=== PATIENT | male | born 1965 | race Native Hawaiian/Other Pacific Islander ===

== ENCOUNTER → 2019-06-13 | Outpatient (CLI) | payer BC ==
--- NOTE | 2019-06-13 16:26 | RADIOLOGY REPORT (SQ) ---
EXAM DESCRIPTION: HAND RIGHT 2 VIEWS COMPLETED DATE/TIME: 06/13/2019 3:02 pm REASON FOR STUDY: PAIN IN RT HAND M79.641 PAIN IN RIGHT HAND COMPARISON: None. EXAM PARAMETERS: NUMBER OF VIEWS: Three views. TECHNIQUE: AP, lateral and oblique radiographic images acquired of the right hand. LIMITATIONS: None. FINDINGS: MINERALIZATION: Normal. BONES: No acute fracture or dislocation. Mild arthrosis of the 2nd and 3rd metacarpophalangeal joint s as well as the radiocarpal articulation with small subcortical cysts noted. JOINTS: No effusion. SOFT TISSUES: Mild dorsal soft tissue swelling. No radiopaque foreign body. OTHER: No other significant finding. IMPRESSION: No acute fracture or dislocation. Mild arthrosis of the 2nd and 3rd metacarpophalangeal joints as well as the radiocarpal articulation with small subcortical cysts noted.Mild dorsal soft t issue swelling. No radiopaque foreign body. TECHNICAL DOCUMENTATION: JOB ID: [id number] [place]-[id number] 2010 [employer]- All Rights Reserved Reading location - IP/workstation name: [email or web address]
== END ==
LOC: OD 14:09
PROVIDERS: ATTEND Internal Medicine
DX: M79.641 Pain in right hand (principal)

== ENCOUNTER → 2020-03-12 | Outpatient (CLI) | payer BC ==
--- NOTE | 2020-03-12 12:12 | RADIOLOGY REPORT (SQ) ---
EXAM DESCRIPTION: CT CHEST WITH IMAGES COMPLETED DATE/TIME: 03/12/2020 11:40 am REASON FOR STUDY: J61 PNEUMOCONIOSIS DUE TO ASBESTOS AND OTHER MINERAL FIBERS J61 PNEUMOCONIOSIS DU E TO ASBESTOS AND OTHER MINERAL FIBERS COMPARISON: None. TECHNIQUE: CT scan of the chest performed using helical scanning technique with dynamic intravenous contrast injection. Images reviewed with lung, soft tissue and bone windows. Reconstructed coronal and sagittal MPR and MIP images reviewed. All images stored on PACS. All CT scanners at this facility use dose modulation, iterative reconstruction, and/or weight based d osing when appropriate to reduce radiation dose to as low as reasonably achievable (ALARA). [facility]: Dose Right [facility]: CareDose [facility]: Dose Right [facility]: Teradose 4D [facility]: Business Engine CONTRAST TYPE AND DOSE: Contrast/concentration: Isovue 350.00 mg/ml; Total Contrast Delivered: 80.0 ml; Total Saline Delivered: 55.0 ml RENAL FUNCTION: Creatinine 0.6 milligrams/deciliter. RADIATION DOSE: CT Rad equipment meets quality standard of care and radiation dose reduction techniq ues were employed. CTDIvol: 8.4 mGy. DLP: 314 mGy-cm. LIMITATIONS: None. FINDINGS: LUNGS AND PLEURA: The trachea main bronchi are patent. There is no bronchiectasis or mucu s plugging. There is a moderately-sized pleural effusion on the left ; the effusion appears loculate d with mild smooth septal thickening. There is no consolidation, ground-glass opacification, interlo bular septal thickening, subpleural reticulation, honeycombing, pleural plaques, or centrilobular/per ivascular nodularity. HILAR AND MEDIASTINAL STRUCTURES: There are borderline enlarged prevascular, right lower peritracheal , AP window in sub- carinal lymph nodes that measure up to 8.5 mm in short axis diameter ; the sub- c arinal lymph node contains a punctate calcification. There is no mediastinal mass. HEART AND VASCULAR STRUCTURES: The thoracic aorta is nonaneurysmal. There is mild atherosclerotic ca lcification of the coronary arteries. There is no cardiomegaly or pericardial effusion. HARDWARE: None in the chest. UPPER ABDOMEN: No acute findings. THYROID AND OTHER SOFT TISSUES: No mass or adenopathy. BONES: No fracture or osseous lesion OTHER: No other finding. IMPRESSION: Moderately sized pleural effusion on the left ; the effusion appears loculated with mild smooth septal thickening. There are subpleural blebs in the apices but none of the typical findings of a pneumoconiosis including consolidation, ground-glass opacification, interlobular septal thicken ing, subpleural reticulation, honeycombing, pleural plaques, or centrilobular/perivascular nodularity . TECHNICAL DOCUMENTATION: JOB ID: [id number] Quality ID # [id number]: Final reports with documentation of one or more dose reduction techniques (e.g., Au tomated exposure control, adjustment of the mA and/or kV according to patient size, use of iterative reconstruction technique) 2010 [email or web address]- All Rights Reserved Reading location - IP/workstation name: [email or web address]
== END ==
LOC: RAD 10:45
PROVIDERS: ATTEND Internal Medicine
DX: J61 Pneumoconiosis due to asbestos and other mineral fibers (principal)
CPT/HCPCS: 71260; 82565

== ENCOUNTER 2020-03-13 09:11 | Observation (INO) | payer BC ==
[2020-03-13 11:51] LABS: INTERNATIONAL RATION (INR) 1.05; PARTIAL THROMBOPLASTIN TIME 30.1 SEC (23.5-35.8); PROTHROMBIN TIME 13.7 SEC (11.4-15.4)
[2020-03-13 12:17] LABS: ALBUMIN 3.4 g/dL (3.5-5.0); ALKALINE PHOSPHATASE 128 U/L (38-126); ANION GAP 7 (5-19); ASPARTATE AMINO TRANSFERASE 33 U/L (17-59); BILIRUBIN,DIRECT 0.1 mg/dL (0.0-0.4); BILIRUBIN,TOTAL 0.5 mg/dL (0.2-1.3); BLOOD UREA NITROGEN 8 mg/dL (7-20); C-REACTIVE PROTEIN 57.2 mg/L (<10.0); CALCIUM 8.7 mg/dL (8.4-10.2); CARBON DIOXIDE 23 mmol/L (22-30); CHLORIDE 108 mmol/L (98-107); GLUCOSE 99 mg/dL (75-110); POTASSIUM 4.1 mmol/L (3.6-5.0); TOTAL PROTEIN 6.9 g/dL (6.3-8.2); TRIGLYCERIDES 80 mg/dL (<150)
[2020-03-13 12:41] LABS: ABSOLUTE EOSINOPHILS # (AUTO) 0.1 10^3/uL (0.0-0.6); ABSOLUTE LYMPHOCYTES (AUTO) 0.7 10^3/uL (0.5-4.7); ABSOLUTE MONOCYTES (AUTO) 0.2 10^3/uL (0.1-1.4); ABSOLUTE NEUT (AUTO) 4.5 10^3/uL (1.7-8.2); BASOPHILS % (AUTO) 0.5 % (0-2); EOSINOPHILS % (AUTO) 2.6 % (0-6); HEMATOCRIT 34.7 % (37.9-51.0); HEMOGLOBIN 12.1 g/dL (13.5-17.0); LYMPHOCYTES % (AUTO) 11.9 % (13-45); MEAN CORPUSCULAR HEMOGLOBIN 33.6 pg (27.0-33.4); MEAN CORPUSCULAR HGB CONC 34.9 g/dL (32.0-36.0); MEAN CORPUSCULAR VOLUME 96 fl (80-97); PLATELET COUNT 356 10^3/uL (150-450); RED CELL DISTRIBUTION WIDTH 14.6 % (11.5-14.0); TOTAL CELLS COUNTED % (AUTO) 100 %; WHITE BLOOD COUNT 5.6 10^3/uL (4.0-10.5)
--- NOTE | 2020-03-13 17:35 | PDOC H&P ---
History of Present Illness Admission Date/PCP: 03/13/20 09:11 ELEANOR GAXIOLA MD History of Present Illness: ABBEY PURCELL is a 55 year old male, he has a history of rheumatoid arthritis, status post total left knee replacement, [place], he recently had a chest x-ray that demonstrated pleural effusion he was advised to see me in the office. Patient is also symptomatic with increased work of breathing, a stat CT chest with contrast was obtained yesterday, 03/12/2020, it demonstrated patent trachea and main bronchi, there is no bronchiectasis or mucous plugging, also found was a moderate sized pleural effusion on the left the effusion appears loculated with mild smooth septal thickening. There is no consolidation, no groundglass opacification, no interlobular septal thickening, no subpleural reticulation no honeycombing no pleural plaques no centrilobular/prevascular adenopathy. 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, LOWER BACK, Other - Rheumatoid arthritis Social History Smoking Status: Current Every Day Smoker Electronic Cigarette use?: No Frequency of Alcohol Use: None Hx Recreational Drug Use: No Drugs: None Hx Prescription Drug Abuse: No Family History Parental Family History Reviewed: Yes Children Family History Reviewed: Yes Sibling(s) Family History Reviewed.: Yes Medication/Allergy Home Medications: Adalimumab [Humira Pen Flme-Mariwg-Qtbl Hs] 40 mg SUBCUT [id number] 03/13/20 Allopurinol [Zyloprim 100 mg Tablet] 100 mg PO BID 03/13/20 Chantix Starting Pack 0.5 - 1 mg PO ASDIR 03/13/20 Folic Acid [Folvite 1 mg Tablet] 1 mg PO DAILY 03/13/20 Methotrexate Sodium [Rheumatrex 2.5 mg Tablet] 10 mg PO TU@1200 03/13/20 Allergies/Adverse Reactions: No Known Allergies Allergy (Unverified 04/01/12 11:27) Review of Systems Constitutional: ABSENT: chills, fever(s), headache(s), weight gain, weight loss Eyes: ABSENT: visual disturbances Ears: ABSENT: hearing changes Cardiovascular: ABSENT: chest pain, dyspnea on exertion, edema, orthropnea, palpitations Respiratory: PRESENT: cough, dyspnea Gastrointestinal: ABSENT: abdominal pain, constipation, diarrhea, hematemesis, hematochezia, nausea, vomiting Genitourinary: ABSENT: dysuria, hematuria Musculoskeletal: ABSENT: joint swelling Integumentary: ABSENT: rash, wounds Neurological: ABSENT: abnormal gait, abnormal speech, confusion, dizziness, focal weakness, syncope Psychiatric: ABSENT: anxiety, depression, homidical ideation, suicidal ideation Endocrine: ABSENT: cold intolerance, heat intolerance, menstrual abnormalities, polydipsia, polyuria Hematologic/Lymphatic: ABSENT: easy bleeding, easy bruising, lymphadenopathy Physical Exam Vital Signs: Temp Pulse Resp BP Pulse Ox 99.3 F 89 20 128/73 H 98 03/13/20 15:05 03/13/20 15:05 03/13/20 15:05 03/13/20 15:05 03/13/20 15:05 Intake & Output 03/12/20 03/13/20 03/14/20 06:59 06:59 06:59 Intake Total 476 Balance 476 Weight 77.9 kg General appearance: PRESENT: no acute distress, well-developed, well-nourished Head exam: PRESENT: atraumatic, normocephalic Eye exam: PRESENT: conjunctiva pink, EOMI, PERRLA Ear exam: PRESENT: normal external ear exam Mouth exam: PRESENT: moist, tongue midline Neck exam: PRESENT: full ROM Respiratory exam: PRESENT: decreased breath sounds Cardiovascular exam: PRESENT: RRR, +S1, +S2 Pulses: PRESENT: normal dorsalis pedis pul, +2 pedal pulses bilateral Vascular exam: PRESENT: normal capillary refill GI/Abdominal exam: PRESENT: normal bowel sounds, soft Rectal exam: PRESENT: deferred Neurological exam: PRESENT: alert, awake, oriented to person, oriented to place, oriented to time, oriented to situation, CN II-XII grossly intact Psychiatric exam: PRESENT: appropriate affect, normal mood Skin exam: PRESENT: dry, intact, warm. ABSENT: cyanosis, rash Results Laboratory Results: 03/13/20 11:20 03/13/20 11:20 03/13/20 03/13/20 11:20 11:20 WBC 5.6 RBC 3.60 L Hgb 12.1 L Hct 34.7 L MCV 96 MCH 33.6 H MCHC 34.9 RDW 14.6 H Plt Count 356 Seg Neutrophils % 81.0 H Sodium 138.1 Potassium 4.1 Chloride 108 H Carbon Dioxide 23 Anion Gap 7 BUN 8 Creatinine 0.50 L Est GFR ( Amer) > 60 Glucose 99 Calcium 8.7 Total Bilirubin 0.5 AST 33 Alkaline Phosphatase 128 H C-Reactive Protein 57.2 H Total Protein 6.9 Albumin 3.4 L Triglycerides 80 Assessment & Plan - Diagnosis (1) Pleural effusion, left Is this a current diagnosis for this admission?: Yes Plan: This is probably exudative pleural effusion, this could be related to his rheumatoid arthritis or other causes, patient is admitted for thoracentesis (2) Rheumatoid arthritis Qualifiers: Rheumatoid arthritis location: unspecified site Rheumatoid factor presence: with rheumatoid factor Qualified Code(s): M05.9 - Rheumatoid arthritis with rheumatoid factor, unspecified Is this a current diagnosis for this admission?: Yes
[2020-03-13] MEDS: AZITHROMYCIN 250 MG TABLET PO SCH (17:56)
[2020-03-13] MEDS ORDERED: RINGERS SOLUTION,LACTATED 1,000 ML IV PRN (19:52)
[2020-03-13] MEDS: CEFTRIAXONE 2 GM/D5W RTU 2 GM/50 ML RTUPB IV SCH (21:22)
[2020-03-14] MEDS: ACETAMINOPHEN 325 MG TABLET PO PRN ×2 (08:31→14:19)
[2020-03-14 09:33] LABS: ABSOLUTE EOSINOPHILS # (AUTO) 0.1 10^3/uL (0.0-0.6); ABSOLUTE LYMPHOCYTES (AUTO) 0.8 10^3/uL (0.5-4.7); ABSOLUTE MONOCYTES (AUTO) 0.3 10^3/uL (0.1-1.4); BASOPHILS % (AUTO) 0.5 % (0-2); HEMOGLOBIN 12.1 g/dL (13.5-17.0); TOTAL CELLS COUNTED % (AUTO) 100 %
[2020-03-14 09:36] LABS: ABSOLUTE NEUT (AUTO) 4.7 10^3/uL (1.7-8.2); EOSINOPHILS % (AUTO) 1.5 % (0-6); HEMATOCRIT 35.3 % (37.9-51.0); LYMPHOCYTES % (AUTO) 13.2 % (13-45); MEAN CORPUSCULAR HEMOGLOBIN 32.8 pg (27.0-33.4); MEAN CORPUSCULAR HGB CONC 34.2 g/dL (32.0-36.0); MEAN CORPUSCULAR VOLUME 96 fl (80-97); MONOCYTES % (AUTO) 4.6 % (3-13); PLATELET COUNT 351 10^3/uL (150-450); RED BLOOD COUNT 3.69 10^6/uL (4.35-5.55); RED CELL DISTRIBUTION WIDTH 14.7 % (11.5-14.0); SEGMENTED NEUTROPHILS % (AUTO) 80.2 % (42-78); WHITE BLOOD COUNT 5.8 10^3/uL (4.0-10.5)
[2020-03-14 09:57] LABS: TOTAL PROTEIN 6.9 g/dL (6.3-8.2)
[2020-03-14] MEDS: CEFTRIAXONE 2 GM/D5W RTU 2 GM/50 ML RTUPB IV SCH (10:10)
[2020-03-14] MEDS: AZITHROMYCIN 250 MG TABLET PO SCH (10:10)
--- NOTE | 2020-03-14 13:31 | RADIOLOGY REPORT (SQ) ---
EXAM DESCRIPTION: CHEST SINGLE VIEW IMAGES COMPLETED DATE/TIME: 03/14/2020 1:18 pm REASON FOR STUDY: post thora COMPARISON: 03/14/2020 EXAM PARAMETERS: NUMBER OF VIEWS: One view. TECHNIQUE: Single frontal radiographic view of the chest acquired. RADIATION DOSE: NA LIMITATIONS: None. FINDINGS: LUNGS AND PLEURA: Small residual left pleural effusion. No pneumothorax following thorace ntesis. No consolidation. Minimal linear atelectasis in the left base. MEDIASTINUM AND HILAR STRUCTURES: No masses. Contour normal. HEART AND VASCULAR STRUCTURES: Heart normal in size. Normal vasculature. BONES: No acute findings. HARDWARE: None in the chest. OTHER: No other significant finding. IMPRESSION: No pneumothorax following left-sided thoracentesis. Small residual left effusion. TECHNICAL DOCUMENTATION: JOB ID: [id number] 2010 [employer]- All Rights Reserved Reading location - IP/workstation name: [email or web address]
--- NOTE | 2020-03-14 13:49 | RADIOLOGY REPORT (SQ) ---
EXAM DESCRIPTION: U/S THORACENTESIS WITH IMAGING IMAGES COMPLETED DATE/TIME: 03/14/2020 1:38 pm REASON FOR STUDY: left pleural effusion COMPARISON: CT chest dated 03/12/2020 RADIATION DOSE: None. LIMITATIONS: None. PROCEDURE: Procedure, risks, benefit, and alternative explained to patient who then gave written con sent. The posterior left chest wall was marked using ultrasound guidance. A time-out was called for correct marking verification. Chest prepped and draped using sterile technique. Local anesthesia ac hieved using 10 ml of 1% lidocaine injection. A 6fr Safe-T- Centesis set was introduced into the lef t pleural space. Fluid was aspirated. The catheter was removed and the entry site was covered with sterile bandage. No immediate complications noted. Images acquired during the procedure were stored on PACS. FINDINGS: ENTRY SITE: posterior left chest. FLUID VOLUME: 450 mL FLUID ANALYSIS: Clear, straw-colored OTHER: Fluid sent to the lab for testing. IMPRESSION: SUCCESSFUL THORACENTESIS USING ULTRASOUND GUIDANCE. COMMENT: Patient medication list reviewed: Yes- Quality ID# [id number]:Eligible professional attests to doc umenting in the medical record they obtained, updated, or reviewed the patient's current medications. TECHNICAL DOCUMENTATION: JOB ID: [id number] 2010 [employer]- All Rights Reserved Reading location - IP/workstation name: [email or web address]
[2020-03-14 14:16] VITALS: BP 138/78
--- NOTE | 2020-03-14 15:25 | PDOC DISCHARGE SUMMARY ---
Impression - Admit/DC Date/PCP Admission Date/Primary Care Provider: 03/13/20 09:11 ELEANOR GAXIOLA MD Discharge Date: 03/14/20 - Discharge Diagnosis (1) Pleural effusion, left Is this a current diagnosis for this admission?: Yes (2) Rheumatoid arthritis Is this a current diagnosis for this admission?: Yes - Additional Information Discharge Diet: As Tolerated Discharge Activity: Activity As Tolerated Referrals: ELEANOR GAXIOLA MD [Primary Care Provider] - Prescriptions: Levofloxacin [Levaquin 750 mg Tablet] 750 mg PO DAILY #10 tab Home Medications: Chantix Starting Pack 0.5 - 1 mg PO ASDIR 03/13/20 RX: Adalimumab [Humira Pen Xsvk-Cbdnqz-Wrhp Hs] 40 mg SUBCUT [id number] 03/13/20 RX: Allopurinol [Zyloprim 100 mg Tablet] 100 mg PO BID 03/13/20 RX: Folic Acid [Folvite 1 mg Tablet] 1 mg PO DAILY 03/13/20 RX: Methotrexate Sodium [Rheumatrex 2.5 mg Tablet] 10 mg PO TU@1200 03/13/20 Levofloxacin [Levaquin 750 mg Tablet] 750 mg PO DAILY #10 tab 03/14/20 History of Present Illiness History of Present Illness: ABBEY PURCELL is a 55 year old male, he has a history of rheumatoid arthritis, status post total left knee replacement, [place] is in [place], he recently had a chest x-ray that demonstrated pleural effusion he was advised to see me in the office. Patient is also symptomatic with increased work of breathing, a stat CT chest with contrast was obtained yesterday, 03/12/2020, it demonstrated patent trachea and main bronchi, there is no bronchiectasis or mucous plugging, also found was a moderate sized pleural effusion on the left the effusion appears loculated with mild smooth septal thickening. There is no consolidation, no groundglass opacification, no interlobular septal thickening, no subpleural reticulation no honeycombing no pleural plaques no centrilobular/prevascular adenopathy. I was particularly concerned about the loculated pleural effusion I spoke to the radiologist regarding the ability to drain the pleural effusion because he said it was loculated but the radiologist indicated that this could be drained, patient is admitted essentially for dual diagnostic and therapeutic thoracentesis of the left pleural effusion Hospital Course Hospital Course: Patient was admitted for the management of left pleural effusion, he underwent thoracentesis today about 450 ml of pleural fluid was drained from the pleural space. Fluid sent for analysis result pending, patient was admitted yesterday for observation the intent of the admission was for patient to have thoracentesis for both diagnostic and therapeutic purposes he had fever with a temperature of 101 there was no pneumonia on the chest x-ray, patient is a smoker, he was empirically given antibiotic Rocephin and azithromycin intravenously. I wanted patient to stay for few more days but he wants to go home today he has no plan or intent to stay beyond today, I was particularly concerned because of the fever and the cough especially in this era of coronavirus .I thought it may be appropriate to swab his nose to rule out coronavirus but patient does not want to stay longer in the hospital the repeat chest x-ray postthoracentesis was clear there was no infiltrates , patient will be discharged home today he will call the office tomorrow for the results and also he will advise me about his clinical condition tomorrow if needed he may be readmitted otherwise he was given antibiotic prescription Levaquin to treat empirically for bronchitis. He has no shortness of breath since he had thorace ntesis done Physical Exam Vital Signs: Temp Pulse Resp BP Pulse Ox 98 F 103 H 17 138/78 H 96 03/14/20 14:15 03/14/20 14:15 03/14/20 14:15 03/14/20 14:15 03/14/20 14:15 Intake & Output 03/13/20 03/14/20 03/15/20 06:59 06:59 06:59 Intake Total 716 1460 Output Total 300 450 Balance 416 1010 Weight 78.2 kg General appearance: PRESENT: no acute distress Eye exam: PRESENT: PERRLA Respiratory exam: PRESENT: clear to auscultation alfreda Cardiovascular exam: PRESENT: +S1, +S2 GI/Abdominal exam: PRESENT: soft Neurological exam: PRESENT: alert Results Laboratory Results: WBC 5.8 10^3/uL (4.0-10.5) 03/14/20 09:20 RBC 3.69 10^6/uL (4.35-5.55) L 03/14/20 09:20 Hgb 12.1 g/dL (13.5-17.0) L 03/14/20 09:20 Hct 35.3 % (37.9-51.0) L 03/14/20 09:20 MCV 96 fl (80-97) 03/14/20 09:20 MCH 32.8 pg (27.0-33.4) 03/14/20 09:20 MCHC 34.2 g/dL (32.0-36.0) 03/14/20 09:20 RDW 14.7 % (11.5-14.0) H 03/14/20 09:20 Plt Count 351 10^3/uL (150-450) 03/14/20 09:20 Lymph % (Auto) 13.2 % (13-45) 03/14/20 09:20 [place] % (Auto) 4.6 % (3-13) 03/14/20 09:20 Eos % (Auto) 1.5 % (0-6) 03/14/20 09:20 Baso % (Auto) 0.5 % (0-2) 03/14/20 09:20 Absolute Neuts (auto) 4.7 10^3/uL (1.7-8.2) 03/14/20 09:20 Absolute Lymphs (auto) 0.8 10^3/uL (0.5-4.7) 03/14/20 09:20 Absolute Monos (auto) 0.3 10^3/uL (0.1-1.4) 03/14/20 09:20 Absolute Eos (auto) 0.1 10^3/uL (0.0-0.6) 03/14/20 09:20 Absolute Basos (auto) 0.0 10^3/uL (0.0-0.2) 03/14/20 09:20 Seg Neutrophils % 80.2 % (42-78) H 03/14/20 09:20 ESR 106 mm/hr (0-20) H 03/13/20 11:20 PT 13.7 SEC (11.4-15.4) 03/13/20 11:20 INR 1.05 03/13/20 11:20 APTT 30.1 SEC (23.5-35.8) 03/13/20 11:20 Sodium 138.1 mmol/L (137-145) 03/13/20 11:20 Potassium 4.1 mmol/L (3.6-5.0) 03/13/20 11:20 Chloride 108 mmol/L (98-107) H 03/13/20 11:20 Carbon Dioxide 23 mmol/L (22-30) 03/13/20 11:20 Anion Gap 7 (5-19) 03/13/20 11:20 BUN 8 mg/dL (7-20) 03/13/20 11:20 Creatinine 0.50 mg/dL (0.52-1.25) L 03/13/20 11:20 Est GFR ( Amer) > 60 (>60) 03/13/20 11:20 Est GFR (MDRD) Non-Af > 60 (>60) 03/13/20 11:20 Glucose 99 mg/dL (75-110) 03/13/20 11:20 Calcium 8.7 mg/dL (8.4-10.2) 03/13/20 11:20 Total Bilirubin 0.5 mg/dL (0.2-1.3) 03/13/20 11:20 Direct Bilirubin 0.1 mg/dL (0.0-0.4) 03/13/20 11:20 Neonat Total Bilirubin Not Reportable 03/13/20 11:20 Neonat Direct Bilirubin Not Reportable 03/13/20 11:20 Neonat Indirect Bili Not Reportable 03/13/20 11:20 AST 33 U/L (17-59) 03/13/20 11:20 ALT 44 U/L (<50) 03/13/20 11:20 Alkaline Phosphatase 128 U/L (38-126) H 03/13/20 11:20 Lactate Dehydrogenase 158 U/L (120-246) 03/14/20 09:20 C-Reactive Protein 57.2 mg/L (<10.0) H 03/13/20 11:20 Total Protein 6.9 g/dL (6.3-8.2) 03/14/20 09:20 Albumin 3.4 g/dL (3.5-5.0) L 03/13/20 11:20 Triglycerides 80 mg/dL (<150) 03/13/20 11:20 Impressions: Chest X-Ray 03/14/20 00:00 IMPRESSION: No pneumothorax following left-sided thoracentesis. Small residual left effusion. Thoracentesis Ultrasound 03/14/20 00:00 IMPRESSION: SUCCESSFUL THORACENTESIS USING ULTRASOUND GUIDANCE. Stroke Is this a Stroke Patient?: No Acute Heart Failure - Is this a Heart Failure Patient?: No
[2020-03-18 10:32] LABS: RHEUMATOID FACTOR LEVELS IGA >160.0 EU/ml (.); RHEUMATOID FACTOR LEVELS IGG >160.0 EU/ml (.)
== END 2020-03-14 15:02 | disposition home or self-care (01) ==
LOC: 3W 09:11
PROVIDERS: ADMIT Internal Medicine; ATTEND Internal Medicine
DX: J90 Pleural effusion, not elsewhere classified (principal); M05.9 Rheumatoid arthritis with rheumatoid factor, unspecified; Z77.090 Contact with and (suspected) exposure to asbestos; R50.9 Fever, unspecified; M13.862 Other specified arthritis, left knee; M13.861 Other specified arthritis, right knee; M13.88 Other specified arthritis, other site; Z79.899 Other long term (current) drug therapy; Z96.652 Presence of left artificial knee joint; Z86.79 Personal history of other diseases of the circulatory system
CPT/HCPCS: 36415 ×2; 87040; 87086; 87205; 87070; 83615 ×3; 84155; 84478; 85025 ×2; 85652; 85610; 85730; 87075; 86140; 80076; 80048; 86431 ×3; 84157; 88162; 88305 ×2; 71045; 32555; G0378 ×2; J7120; J0696 ×2

== ENCOUNTER → 2020-09-27 | Outpatient (CLI) | payer BC ==
[2020-09-27 16:17] LABS: ABSOLUTE EOSINOPHILS # (AUTO) 0.1 10^3/uL (0.0-0.6); ABSOLUTE MONOCYTES (AUTO) 0.3 10^3/uL (0.1-1.4); ABSOLUTE NEUT (AUTO) 3.7 10^3/uL (1.7-8.2); BASOPHILS % (AUTO) 0.6 % (0-2); EOSINOPHILS % (AUTO) 2.1 % (0-6); HEMOGLOBIN 14.8 g/dL (13.5-17.0); LYMPHOCYTES % (AUTO) 19.4 % (13-45); MEAN CORPUSCULAR HEMOGLOBIN 33.1 pg (27.0-33.4); MEAN CORPUSCULAR HGB CONC 34.5 g/dL (32.0-36.0); MEAN CORPUSCULAR VOLUME 96 fl (80-97); MONOCYTES % (AUTO) 5.1 % (3-13); PLATELET COUNT 261 10^3/uL (150-450); RED BLOOD COUNT 4.48 10^6/uL (4.35-5.55); RED CELL DISTRIBUTION WIDTH 14.6 % (11.5-14.0); SEGMENTED NEUTROPHILS % (AUTO) 72.8 % (42-78); TOTAL CELLS COUNTED % (AUTO) 100 %
[2020-09-27 16:18] LABS: APPEARANCE,URINE CLEAR; BILIRUBIN,URINE NEGATIVE (NEGATIVE); COLOR,URINE YELLOW; GLUCOSE, URINE NEGATIVE (NEGATIVE); KETONES,URINE NEGATIVE (NEGATIVE); LEUKOCYTE ESTERASE,URINE NEGATIVE (NEGATIVE); NITRITE,URINE NEGATIVE (NEGATIVE); PROTEIN,URINE NEGATIVE (NEGATIVE); URINE SPECIFIC GRAVITY 1.006; UROBILINOGEN,URINE NEGATIVE mg/dL (<2.0)
[2020-09-27 16:33] LABS: INTERNATIONAL RATION (INR) 0.96
[2020-09-27 16:35] LABS: ALBUMIN 4.4 g/dL (3.5-5.0); ALKALINE PHOSPHATASE 88 U/L (38-126); ANION GAP 12 (5-19); ASPARTATE AMINO TRANSFERASE 39 U/L (17-59); BILIRUBIN,DIRECT 0.2 mg/dL (0.0-0.4); BILIRUBIN,TOTAL 0.6 mg/dL (0.2-1.3); BLOOD UREA NITROGEN 10 mg/dL (7-20); C-REACTIVE PROTEIN 35.6 mg/L (<10.0); CARBON DIOXIDE 26 mmol/L (22-30); CHLORIDE 102 mmol/L (98-107); GLUCOSE 129 mg/dL (75-110); POTASSIUM 4.2 mmol/L (3.6-5.0); TOTAL PROTEIN 8.2 g/dL (6.3-8.2)
[2020-09-27 16:58] LABS: ERYTHROCYTE SEDIMENTATION RATE 76 mm/hr (0-20)
--- NOTE | 2020-09-27 18:26 | EKG REPORT ---
SEVERITY:- NORMAL ECG - SINUS RHYTHM : Confirmed by: Landon Gonzalez MD 27-Sep-2020 18:25:45
== END ==
LOC: OD 15:26
PROVIDERS: ATTEND Orthopaedic Surgery
DX: Z01.812 Encounter for preprocedural laboratory examination (principal); Z01.810 Encounter for preprocedural cardiovascular examination; M06.9 Rheumatoid arthritis, unspecified
CPT/HCPCS: 36415; 80053; 81001; 82306; 83036; 85025; 85610; 85652; 86140; 87070; 93005; 93010

== ENCOUNTER → 2020-11-02 | Outpatient (CLI) | payer BC ==
[2020-11-02 11:22] LABS: ABSOLUTE EOSINOPHILS # (AUTO) 0.1 10^3/uL (0.0-0.6); ABSOLUTE LYMPHOCYTES (AUTO) 1.5 10^3/uL (0.5-4.7); ABSOLUTE MONOCYTES (AUTO) 0.4 10^3/uL (0.1-1.4); ABSOLUTE NEUT (AUTO) 2.8 10^3/uL (1.7-8.2); EOSINOPHILS % (AUTO) 2.7 % (0-6); HEMATOCRIT 42.7 % (37.9-51.0); HEMOGLOBIN 14.3 g/dL (13.5-17.0); MEAN CORPUSCULAR HEMOGLOBIN 32.3 pg (27.0-33.4); MEAN CORPUSCULAR HGB CONC 33.5 g/dL (32.0-36.0); MEAN CORPUSCULAR VOLUME 96 fl (80-97); MONOCYTES % (AUTO) 8.5 % (3-13); PLATELET COUNT 247 10^3/uL (150-450); RED BLOOD COUNT 4.44 10^6/uL (4.35-5.55); RED CELL DISTRIBUTION WIDTH 15.6 % (11.5-14.0); SEGMENTED NEUTROPHILS % (AUTO) 56.8 % (42-78); TOTAL CELLS COUNTED % (AUTO) 100 %; WHITE BLOOD COUNT 4.9 10^3/uL (4.0-10.5)
[2020-11-02 11:27] LABS: INTERNATIONAL RATION (INR) 0.91; PROTHROMBIN TIME 12.5 SEC (11.4-15.4)
[2020-11-02 11:40] LABS: PARTIAL THROMBOPLASTIN TIME 29.9 SEC (23.5-35.8)
[2020-11-02 11:45] LABS: APPEARANCE,URINE CLEAR; BILIRUBIN,URINE NEGATIVE (NEGATIVE); COLOR,URINE YELLOW; GLUCOSE, URINE NEGATIVE (NEGATIVE); KETONES,URINE NEGATIVE (NEGATIVE); LEUKOCYTE ESTERASE,URINE NEGATIVE (NEGATIVE); NITRITE,URINE NEGATIVE (NEGATIVE); PROTEIN,URINE NEGATIVE (NEGATIVE); UROBILINOGEN,URINE NEGATIVE mg/dL (<2.0)
[2020-11-02 11:57] LABS: ALBUMIN 4.3 g/dL (3.5-5.0); ANION GAP 8 (5-19); BLOOD UREA NITROGEN 13 mg/dL (7-20); C-REACTIVE PROTEIN 19.3 mg/L (<10.0); CALCIUM 9.7 mg/dL (8.4-10.2); CARBON DIOXIDE 29 mmol/L (22-30); CHLORIDE 100 mmol/L (98-107); GLUCOSE 92 mg/dL (75-110); POTASSIUM 4.1 mmol/L (3.6-5.0)
[2020-11-02 12:13] LABS: ERYTHROCYTE SEDIMENTATION RATE 49 mm/hr (0-20)
--- NOTE | 2020-11-02 17:10 | EKG REPORT ---
SEVERITY:- NORMAL ECG - SINUS RHYTHM : Confirmed by: Ortega Gonzalez MD 02-Nov-2020 17:09:26
== END ==
LOC: OD 09:37
PROVIDERS: ATTEND Orthopaedic Surgery
DX: Z01.810 Encounter for preprocedural cardiovascular examination (principal); Z01.811 Encounter for preprocedural respiratory examination; Z01.812 Encounter for preprocedural laboratory examination; Z01.818 Encounter for other preprocedural examination
CPT/HCPCS: 36415; 80048; 81001; 82040; 82306; 83036; 85025; 85610; 85652; 85730; 86140; 87070; 93005; 93010

== ENCOUNTER 2020-11-26 05:19 | Observation (INO) | payer BC ==
--- NOTE | 2020-11-02 11:20 | RADIOLOGY REPORT (SQ) ---
EXAM DESCRIPTION: CHEST 2 VIEWS IMAGES COMPLETED DATE/TIME: 11/02/2020 7:28 am REASON FOR STUDY: PRE OP COMPARISON: 03/14/2020 EXAM PARAMETERS: NUMBER OF VIEWS: two views TECHNIQUE: Digital Frontal and Lateral radiographic views of the chest acquired. RADIATION DOSE: NA LIMITATIONS: none FINDINGS: LUNGS AND PLEURA: No opacities, masses or pneumothorax. No pleural effusion. MEDIASTINUM AND HILAR STRUCTURES: No masses or contour abnormalities. HEART AND VASCULAR STRUCTURES: Heart normal size. No evidence for failure. BONES: No acute findings. HARDWARE: None in the chest. OTHER: No other significant finding. IMPRESSION: NO ACUTE RADIOGRAPHIC FINDING IN THE CHEST. TECHNICAL DOCUMENTATION: JOB ID: [id number] 2010 [employer]- All Rights Reserved Reading location - IP/workstation name: [email or web address]
[2020-11-02 11:22] LABS: ABSOLUTE EOSINOPHILS # (AUTO) 0.1 10^3/uL (0.0-0.6); ABSOLUTE LYMPHOCYTES (AUTO) 1.5 10^3/uL (0.5-4.7); ABSOLUTE MONOCYTES (AUTO) 0.4 10^3/uL (0.1-1.4); ABSOLUTE NEUT (AUTO) 2.8 10^3/uL (1.7-8.2); EOSINOPHILS % (AUTO) 2.7 % (0-6); HEMATOCRIT 42.7 % (37.9-51.0); HEMOGLOBIN 14.3 g/dL (13.5-17.0); MEAN CORPUSCULAR HEMOGLOBIN 32.3 pg (27.0-33.4); MEAN CORPUSCULAR HGB CONC 33.5 g/dL (32.0-36.0); MEAN CORPUSCULAR VOLUME 96 fl (80-97); MONOCYTES % (AUTO) 8.5 % (3-13); PLATELET COUNT 247 10^3/uL (150-450); RED BLOOD COUNT 4.44 10^6/uL (4.35-5.55); RED CELL DISTRIBUTION WIDTH 15.6 % (11.5-14.0); SEGMENTED NEUTROPHILS % (AUTO) 56.8 % (42-78); TOTAL CELLS COUNTED % (AUTO) 100 %; WHITE BLOOD COUNT 4.9 10^3/uL (4.0-10.5)
[2020-11-02 11:27] LABS: INTERNATIONAL RATION (INR) 0.91; PROTHROMBIN TIME 12.5 SEC (11.4-15.4)
[2020-11-02 11:40] LABS: PARTIAL THROMBOPLASTIN TIME 29.9 SEC (23.5-35.8)
[2020-11-02 11:45] LABS: APPEARANCE,URINE CLEAR; BILIRUBIN,URINE NEGATIVE (NEGATIVE); COLOR,URINE YELLOW; GLUCOSE, URINE NEGATIVE (NEGATIVE); KETONES,URINE NEGATIVE (NEGATIVE); LEUKOCYTE ESTERASE,URINE NEGATIVE (NEGATIVE); NITRITE,URINE NEGATIVE (NEGATIVE); PROTEIN,URINE NEGATIVE (NEGATIVE); UROBILINOGEN,URINE NEGATIVE mg/dL (<2.0)
[2020-11-02 11:57] LABS: ALBUMIN 4.3 g/dL (3.5-5.0); ANION GAP 8 (5-19); BLOOD UREA NITROGEN 13 mg/dL (7-20); C-REACTIVE PROTEIN 19.3 mg/L (<10.0); CALCIUM 9.7 mg/dL (8.4-10.2); CARBON DIOXIDE 29 mmol/L (22-30); CHLORIDE 100 mmol/L (98-107); GLUCOSE 92 mg/dL (75-110); POTASSIUM 4.1 mmol/L (3.6-5.0)
[2020-11-02 12:13] LABS: ERYTHROCYTE SEDIMENTATION RATE 49 mm/hr (0-20)
[~2020-11-26 05:19] MED LIST: ACETAMINOPHEN 325 MG TABLET PO PRN; CEFAZOLIN 2 GM/D5W RTU 2 GM/50 ML RTUPB IV ONE; CEFAZOLIN 2 GM/D5W RTU 2 GM/50 ML RTUPB IV PRN; CELECOXIB 200 MG CAPSULE PO PRN; GABAPENTIN 100 MG CAPSULE PO PRN; LACTATED RINGERS 1000 ML IV PRN; LIDOCAINE 0.5% INJ-PF (5 MG/ML) 50 ML SDV SUBCUT PRN; OXYCODONE HCL SR 10 MG TABLET PO PRN; PANTOPRAZOLE SODIUM 20 MG TABLET.DR PO PRN; SCOPOLAMINE HYDROBROMIDE 1.5 MG PATCH.TD72 TD PRN; TRANEXAMIC ACID INJ/PF 1,000 MG/10 ML SDV IV PRN; VANCOMYCIN HCL 1,000 MG in DEXTROSE 5%-WATER 250 ML IV PRN
[2020-11-26] MEDS ORDERED: ONDANSETRON HCL INJ/PF 4 MG/2 ML SDV ONE (05:45)
[2020-11-26] MEDS ORDERED: ACETAMINOPHEN 325 MG TABLET ONE (05:45)
[2020-11-26] MEDS ORDERED: PANTOPRAZOLE SODIUM 20 MG TABLET.DR PO ONE ×2 (05:45→07:12)
[2020-11-26] MEDS ORDERED: GABAPENTIN 100 MG CAPSULE ONE (05:45)
[2020-11-26] MEDS ORDERED: CELECOXIB 200 MG CAPSULE ONE (05:45)
[2020-11-26] MEDS ORDERED: OXYCODONE HCL SR 10 MG TABLET PO ONE (05:45)
[2020-11-26] MEDS ORDERED: SCOPOLAMINE HYDROBROMIDE 1.5 MG PATCH.TD72 ONE (05:45)
[2020-11-26] MEDS ORDERED: VANCOMYCIN HCL INJ 1000 MG VIAL ONE (07:10)
[2020-11-26] MEDS ORDERED: LIDOCAINE 1% INJ-PF (10 MG/ML) 30 ML SDV ONE (07:10)
[2020-11-26] MEDS ORDERED: BUPIVACAINE HCL 0.25 % INJ/PF (2.5 MG/1 ML) 30 ML VIAL ONE (07:10)
[2020-11-26] MEDS ORDERED: KETOROLAC TROMETHAMINE INJ/PF 30 MG/1 ML SDV ONE ×2 (07:10→15:18)
[2020-11-26] MEDS ORDERED: OXYCODONE HCL IR 5 MG TABLET PO PRN ×4 (07:12)
[2020-11-26] MEDS ORDERED: TRANEXAMIC ACID INJ/PF 1,000 MG/10 ML SDV IV ONE (07:12)
[2020-11-26] MEDS ORDERED: DOCUSATE SODIUM 100 MG CAPSULE PO PRN (07:12)
[2020-11-26] MEDS ORDERED: DIPHENHYDRAMINE HCL 25 MG CAPSULE PO PRN (07:12)
[2020-11-26] MEDS ORDERED: ZOLPIDEM TARTRATE 5 MG TABLET PO PRN (07:12)
[2020-11-26] MEDS ORDERED: ONDANSETRON 4 MG TAB.RAPDIS PO PRN (07:12)
[2020-11-26] MEDS ORDERED: NORMAL SALINE 1000 ML 1,000 ML IV ONE (07:12)
[2020-11-26] MEDS ORDERED: DEXAMETHASONE SOD PHOS INJ 10 MG/1 ML VIAL IV ONE (07:12)
[2020-11-26] MEDS ORDERED: TRAMADOL HCL 50 MG TABLET PO PRN (07:12)
[2020-11-26] MEDS ORDERED: MORPHINE SULFATE 10 MG/ML INJ IV PRN ×3 (07:12→08:25)
--- NOTE | 2020-11-26 07:28 | Discharge Summary ---
Discharge Summary (SDC) - Discharge Final Diagnosis: Left total knee arthroplasty Date of Surgery: 11/26/20 Discharge Date: 11/26/20 Condition: Stable Treatment or Instructions: Full details of postoperative instructions have been provided to the patient in the clinic. Additionally they should maintain their bandage in place for 10 days, and then changed to a dry dressing. They can take showers with this occlusive dressing but any further dressing should also be occlusive. No showers with the wound unprotected until cleared by me in the clinic. If the bandage falls off early or become saturated they can change as needed to another occlusive dressing. Follow-up with Dr. Giacomo Neville, orthopedic surgeon at [facility] for surgery, in 10 days. Call for an appointment. . [address], [place] [address] Referrals: ELEANOR GAXIOLA MD [Primary Care Provider] - Discharge Diet: As Tolerated Respiratory Treatments at Home: Deep Breathing/Coughing Discharge Activity: Activity As Tolerated, No Driving, Keep Legs Elevated, No tub bath, Walk Frequently Adaptive Devices on Discharge: Rolling Walker, Bedside Commode Report the Following to Your Physician Immediately: Shortness of Breath, Fever over 101 Degrees, Unusual Bleeding, Drainage-Yellow
[2020-11-26] MEDS ORDERED: ONDANSETRON HCL INJ/PF 4 MG/2 ML SDV IV PRN (08:25)
[2020-11-26] MEDS ORDERED: MEPERIDINE HCL/PF INJ 25 MG/1 ML DISP.SYRIN IV PRN (08:25)
[2020-11-26] MEDS ORDERED: FENTANYL CITRATE INJ/PF 100 MCG/2 ML AMPUL IV PRN ×3 (08:25)
[2020-11-26] MEDS ORDERED: PROMETHAZINE HCL INJ 25 MG/1 ML VIAL IV PRN ×2 (08:25)
[2020-11-26] MEDS ORDERED: DIPHENHYDRAMINE HCL 50 MG/ML VIAL IV PRN (08:25)
--- NOTE | 2020-11-26 09:36 | Operative Report ---
Operative Report DATE OF SURGERY: 11/26/20 PREOPERATIVE DIAGNOSIS: Left knee rheumatoid osteoarthritis POSTOPERATIVE DIAGNOSIS: Left knee rheumatoid osteoarthritis OPERATION: Left total knee arthroplasty SURGEON: GIACOMO SCHULTZ JR ANESTHESIA: Spinal COMPLICATIONS: None ESTIMATED BLOOD LOSS: 20cc PROCEDURE: Components: [employer] II Total knee: 6 PS femur, 5x9 tibia, and a 35 patella OPERATIVE PROCEDURE: Patient was brought to the operating room and spinal anesthesia was administered. After proper anesthesia was obtained, patient was positioned, padded, prepped, and draped in the usual sterile fashion on the operating room table. 2 grams of Ancef and 1 gram of Vancomycin were given. Appropriate time out was performed. Anterior incision and medial-parapatella approach was performed. Severe degenerative arthritis was noted as well as synovitis. Osteophytes were removed from the femur and tibia, and the remainder of the ACL and PCL and menisci were removed. The proximal tibia was then prepared and cut perpendicular to the tibial shaft axis and measured to a 5 tibia. The distal femur was drilled, the canal was irrigated and the distal femoral guide was placed. The distal femur was cut 11.5 mm to 5 degrees of varus. An extension 10 block was placed in the gap was found to be tight. An additional 2mm was resected from both the distal femur and the tibia. The tensor was placed in extension and the extension gap was balanced with releases until the goniometer on the tensor measured to 0. The tensor was placed in flexion and the femur was sized to 6. Drill holes were placed to the appropriate femoral rotation. The 4 and 1 block was placed and the flexion gap was then re-checked with the tensor adapter and found to be appropriate. Anterior-posterior and chamfer cuts were made. Posterior osteophytes were removed. The femoral trial was then placed, and the notch was cut. The combination of the tibial baseplate and the 9mm polyethylene liner were then placed and the knee was taken through a range of motion with the trials in. This had excellent balance in extension and flexion as well as patellar tracking. The patella AP aspect was measured to 25 mm and the patella was cut parallel to the anterior patella surface. A 35 mm button was placed medially and superiorly as possible and the patella-button construct again measured 25 mm. This was again taken through a range of motion and found to have excellent balance, stability and ease of full motion. The rotation of the tibial baseplate was marked, the tibial was anteriorly subluxed and the tibial component was pinned and drilled and punched. All the trials were then removed and the wound was copiously irrigated with sterile saline followed by a Betadine soak. After pulsatile irrigation of the ariella and soft tissue surfaces, the ariella surfaces were cleaned and dried, and cementation of the femur, tibia, and patella was performed. All excess cement was thoroughly removed. The knee was placed in slight flexion until cement was hard. Periarticular injection with Lidocaine, Marcaine and Toradol was performed. The knee was irrigated copiously. A gram of Vancomycin was placed intra-articularly. The extensor mechanism was closed with number 2 Stratofix. The subcutaneous tissue was closed with 2-0 monocryl and the skin closed with 3-0 running monocryl. A silver dressing was applied. All needle sponge and instrument counts were correct. Patient was awakened from sedation anesthesia and taken to recovery room in good condition. Giacomo Schultz DO
[2020-11-26] MEDS ORDERED: PHENYLEPHRINE HCL INJ/PF 10 MG/1 ML SDV ONE (09:51)
[2020-11-26] MEDS ORDERED: POLYETHYLENE GLYCOL 3350 POWDER 17 GM/1 PACKET PO SCH (10:00)
[2020-11-26] MEDS ORDERED: ALLOPURINOL 100 MG TABLET PO SCH (10:00)
[2020-11-26] MEDS ORDERED: ASPIRIN 325 MG TABLET PO SCH (10:00)
[2020-11-26] MEDS ORDERED: CELECOXIB 200 MG CAPSULE PO SCH (10:00)
[2020-11-26] MEDS ORDERED: GABAPENTIN 100 MG CAPSULE PO SCH (10:00)
[2020-11-26] MEDS ORDERED: FOLIC ACID 1 MG TABLET PO SCH (10:00)
--- NOTE | 2020-11-26 10:55 | RADIOLOGY REPORT (SQ) ---
EXAM DESCRIPTION: KNEE LEFT 2 VIEWS IMAGES COMPLETED DATE/TIME: 11/26/2020 10:30 am REASON FOR STUDY: Post op M17.12 UNILATERAL PRIMARY OSTEOARTHRITIS, LEFT KNEE COMPARISON: None. NUMBER OF VIEWS: Two view(s). TECHNIQUE: Digital radiographic images of the left knee post-procedure. LIMITATIONS: None. FINDINGS: BONES: No worrisome or unexpected findings post-procedure. DEVICE: Total knee arthroplasty. SOFT TISSUES: No worrisome findings. Expected postoperative soft tissue changes. IMPRESSION: SATISFACTORY POSTOPERATIVE LEFT KNEE. TECHNICAL DOCUMENTATION: JOB ID: [id number] 2010 [employer]- All Rights Reserved Reading location - IP/workstation name: [email or web address]
[2020-11-26] MEDS ORDERED: ACETAMINOPHEN 325 MG TABLET PO SCH (12:00)
[2020-11-26] MEDS ORDERED: OXYCODONE HCL IR 5 MG TABLET ONE (13:59)
[2020-11-26] MEDS ORDERED: KETOROLAC TROMETHAMINE INJ/PF 30 MG/1 ML SDV IV SCH (14:00)
[2020-11-26] MEDS ORDERED: CEFAZOLIN SODIUM 2 GM in DEXTROSE 5%-WATER 100 ML IV SCH (14:00)
[2020-11-26] MEDS ORDERED: CEFAZOLIN 2 GM/D5W RTU 2 GM/50 ML RTUPB IV SCH (14:00)
[2020-11-26 17:02] VITALS: BP 140/82
[2020-11-27] MEDS ORDERED: VALSARTAN 40 MG TABLET PO SCH (10:00)
[2020-11-27] MEDS ORDERED: METHOTREXATE SODIUM 2.5 MG TABLET PO SCH (12:00)
[2020-11-28] MEDS ORDERED: CELECOXIB 200 MG CAPSULE PO SCH (10:00)
== END 2020-11-26 17:05 | disposition home or self-care (01) ==
LOC: OROUT 05:19 → INOR 07:12
PROVIDERS: ADMIT Orthopaedic Surgery; ATTEND Orthopaedic Surgery
DX: M06.862 Other specified rheumatoid arthritis, left knee (principal); M17.12 Unilateral primary osteoarthritis, left knee; M65.862 Other synovitis and tenosynovitis, left lower leg; I10 Essential (primary) hypertension; M10.9 Gout, unspecified; Z96.651 Presence of right artificial knee joint; F17.210 Nicotine dependence, cigarettes, uncomplicated; Z01.812 Encounter for preprocedural laboratory examination; Z20.828 Contact with and (suspected) exposure to other viral communicable diseases; Z79.899 Other long term (current) drug therapy; Z79.82 Long term (current) use of aspirin; Z79.1 Long term (current) use of non-steroidal anti-inflammatories (NSAID); Z79.891 Long term (current) use of opiate analgesic; Z51.81 Encounter for therapeutic drug level monitoring
CPT/HCPCS: 27447; 86900; 86901; 36415 ×2; 86850; 82040; 85025; 85652; 85610; 85730; 86140; 80048; 81001; 87070; 83036; 82306; 71046; 73560; 97530; 97110; 97116; 97162; 97535; 97165; 01402; C1713 ×2; C1776 ×4; U0003; J3490 ×2; J1885; J2370; J2405; J7060; J3370; J0690; C9803; 87635